=== PATIENT | female | born 1985 | race Hispanic/Latino ===

== ENCOUNTER 2017-05-23 09:16 | Emergency (ER) | payer OTHER ==
[~2017-05-23] VITALS: Ht 165.1 cm; Wt 49.9 kg
[2017-05-23 09:21] VITALS: BP 113/77
--- NOTE | 2017-05-23 09:54 | ED GENERAL ADULT ---
History of Present Illness General Chief Complaint: General Adult Stated Complaint: FEVER,BODY ACHES,SORE THROAT,HEADACHE Source: patient Exam Limitations: no limitations Vital Signs & Intake/Output Vital Signs & Intake/Output Vital Signs Date Time Temp Pulse Resp B/P B/P Pulse O2 O2 Flow FiO2 Mean Ox Delivery Rate 05/23 920 99.5 98 18 113/77 97 Room Air Allergies Coded Allergies: No Known Allergies (05/23/17) Reconcile Medications Oseltamivir Phosphate (Tamiflu) 75 MG CAPSULE 1 CAP PO BID FLU Triage Note: FEVER, BODY ACHES, SORE THROAT X3 DAYS. TEMP 99.5 IN TRIAGE. TAKING THERAFLU WITHOUT RELIEF. FLU SWAB AND THROAT SWAB SENT FROM TRIAGE. Triage Nurses Notes Reviewed? yes Onset: Gradual Duration: day(s): (3) Timing: remote history Injury Environment: home Severity: moderate No Modifying Factors: none : No Patient currently breastfeeds: No HPI: Patient is a 32-year-old female presenting to the emergency department she complaint of tactile fevers, chills, body aches, headache and sore throat that have been on for the past 3 days. No sick contacts or recent travel. She has been taking [id number] Tamiflu with little relief. No nausea or vomiting. Denies abdominal pain. No chest pain palpitations or shortness of breath. Past History Travel History Traveled to [place] past 21 day No Medical History Any Pertinent Medical History? see below for history Neurological: NONE EENT: NONE Cardiovascular: NONE Respiratory: NONE Gastrointestinal: NONE Hepatic: NONE Renal: NONE Musculoskeletal: NONE Psychiatric: NONE Endocrine: NONE Surgical History Surgical History: non-contributory Psychosocial History What is your primary language Yemeni Tobacco Use: Never used Family History Hx Contributory? No Review of Systems Review of Systems Constitutional: Reports: see HPI, chills, fever, malaise. Comments Review of systems: See HPI, All other systems negative. Constitutional, no weight loss HEENT: No visual changes Cardiovascular: No chest pain ,palpitation , orthopnea or ankle swelling Skin, no jaundice no rashes Respiratory: No dyspnea cough sputum or hemoptysis GI: No nausea no vomiting Muscle skeletal: no back pain, no neck pain, Neurologic: No numbness no confusion Psych: No stress anxiety or depression,. Heme/endocrine: No bruising no bleeding no polyuria or polydipsia Immunology: No splenectomy or history of AIDS Physical Exam Physical Exam General Appearance: well developed/nourished, no apparent distress, alert, awake , comfortable Comments: Well-developed well-nourished person in no acute distress HEENT: Pupils equally round and reactive to light and accommodation. Nose is atraumatic. External auditory canal and Tympanic membranes clear. Pharynx is mildly erythematous without exudate, no tonsillar enlargement. There secretions without difficulty. No swelling or edema. Neck: Supple, no lymphadenopathy, normal range of motion without pain or tenderness Cardiovascular: Regular rate and rhythms no murmurs rubs or gallops, normal JVP Respiratory: No respiratory distress.breath sounds clear to auscultation bilaterally Extremity: No edemA Neuro: Alert oriented x3 Skin: No appreciable rash on exposed skin, skin is warm and dry. Psych: Mood and affect is normal, memory and judgment is normal. Core Measures ACS in differential dx? No CVA/TIA Diagnosis: No Sepsis Present: No Sepsis Focused Exam Completed? No Progress Differential Diagnoses I considered the following diagnoses in my evaluation of the patient: Influenza , upper respiratory infection, strep throat, viral pharyngitis, sinusitis, postnasal drip, GERD Plan of Care: Orders Procedure Date/time Status VIRAL CULTURE 05/23 925 Active RAPID VIRAL INFLUENZA A 05/23 917 Complete THROAT CULTURE W/QUICK STREP 05/23 917 Active Laboratory Tests 05/23/17 0926: Virus Culture Pending Microbiology 05/23 925 NASOPHARYN: Influenza Virus A & B Rapid Smear - COMP INFLUENZA TYPE B Initial ED EKG: none Departure Departure Time of Disposition: 953 Disposition: HOME OR SELF CARE Condition: Stable Clinical Impression Primary Impression: Influenza B Referrals: Patient Has No Primary Care Dr (PCP/Family) Additional Instructions: Follow-up with the primary care physician in the next 5-7 days, increase fluids. Alternate Motrin and Tylenol [id number] to help with aches pains and fevers. Take Tamiflu as prescribed to help with influenza. Return for worsening symptoms or concerns. Departure Forms: Customer Survey General Discharge Information Prescriptions: Current Visit Scripts Oseltamivir Phosphate (Tamiflu) 1 CAP PO BID #10 CAP Critical Care Note Critical Care Note Critical Care Time: non-applicable
[2017-05-23] MEDS ORDERED: TAMIFLU75 M1 PO (10:02)
== END 2017-05-23 10:09 ==
LOC: ERH 09:16
DX: J10.1 Influenza due to other identified influenza virus with other respiratory manifestations (principal)
CPT/HCPCS: 87804; 87804-59